=== PATIENT | male | born 1950 | race Caucasian/White ===

== ENCOUNTER 2022-04-16 14:40 | Outpatient (CLI) | payer MEDICARE, BC, SELFPAY ==
--- OUTSIDE RECORDS SUMMARY | 2022-04-16 14:45 | XMS_ITS | Clinical Summary ---
:1950 Author Organization [facility] [place] [address] Care Team Providers Name Role Phone Obdulio Barnett MD Primary Care Provider Allergies No known active allergies Medications Medication Sig Dispensed Refills Start Date End Date Status multivitamin (MVI) Take 1 tablet by 0 11/26/2010 Active tablet mouth once daily. cholecalciferol Take 1 capsule by 0 11/26/2010 Active (VITAMIN D-3) 2,000 mouth once daily. unit capsule Facial Mask (PILLOW As directed 1 unit. 1 Each 0 01/13/2018 Active MASK ADULT) Resmed 10 air miscIndications: TYLER pillow mask for men (obstructive sleep and attached tubing apnea) varicella-zoster, PF, Shingrix (PF) 50 mcg/0.5 mL intramuscu lar suspension, kit 0 Active (Shingrix, PF,) ADM 0.5ML IM UTD intramuscular injection celecoxib (CELEBREX) Take 1 Capsule (200 60 Capsule 2 05/21/20 21 Active 200 mg mg) by mouth 2 capsuleIndications: times daily with Primary meals. osteoarthritis of right knee triamcinolone 0.5% Apply topically to 15 g 2 05/21/2021 Active (ARISTOCORT) 0.5 % affected area(s) 2 creamIndications: times daily. Chronic eczema meclizine (ANTIVERT) Take 1 Tablet (25 30 Tablet 0 06/07/2021 Active 25 mg mg) by mouth 3 tabletIndications: times daily if Benign positional needed for Vertigo. vertigo, bilateral tamsulosin (FLOMAX) Take 1 Capsule (0.4 90 Capsule 3 2 Active 0.4 mg mg) by mouth at capsuleIndications: bedtime. BPH with urinary obstruction albuterol HFA Inhale 2 Puffs by 18 g 5 06/18/2021 Active (PRO-AIR; VENTOLIN; mouth 4 times PROVENTIL) 90 daily. mcg/actuation inhalerIndications: Cough inhalational spacing For home use. 1 Each 0 06/18/2021 Active deviceIndications: Cough CPAPIndications: CPAP machine for 1 Each 11 06/25/2021 Active Obstructive sleep home use at apnea, Poor sleep pressure: 9 cmw , hygiene Heated humidifier x 1 q 5 yr, Humidifier chamber x 1 q 6 mo, nasal mask x1 q 3mos, with pillows x 2 q mo, Heated tubing x 1 q 3 mo, Headgear x 1 q 6 mo, Filters: Disposable x 2 q mo non-disposable filters x1 q 6mo, Length of Need: 99 months, Frequency of use: Daily buPROPion (WELLBUTRIN Take 1 Tablet (200 90 Tablet 3 2 Active SR) 200 mg mg) by mouth once Sustained-Release daily. tabletIndications: Malaise and fatigue naltrexone (REVIA) 50 Take 1 Tablet (50 30 Tablet 5 09/24/2021 Active mg tabletIndications: mg) by mouth once Alcohol abuse daily. durable medical Procare Reddie Brace, medium 0 11/21 Active equipment [id number] Length of use: 99 months (DME)Indications: Primary osteoarthritis of right knee, Chronic pain of right knee durable medical Quickfit wrist II, Univ/XL, Left 0 0 11/21/2021 Active equipment [id number] Length of Use: 99 months (DME)Indications: Bilateral carpal tunnel syndrome durable medical Quickfit Wrist II, Univ/XL, Right 0 11/21/2021 Active equipment [id number] Length of use: 99 months (DME)Indications: Bilateral carpal tunnel syndrome sildenafil citrate Take 1 Tablet (100 10 Tablet 7 11/29/2021 Active (VIAGRA) 100 mg mg) by mouth once tabletIndications: daily if needed for Erectile dysfunction Erectile of organic origin Dysfunction. Take 30min to 4 hours before sexual activity. Max 100mg/24hr. fluticasone (50 mcg Inhale 2 Sprays to 16 g 0 11/29/2021 Active per actuation) nasal both nostrils once solution daily. (FLONASE)Indications: Acute non-recurrent maxillary sinusitis mirtazapine (REMERON) Take 1 Tablet (7.5 90 Tablet 1 2 Active 7.5 mg mg) by mouth at tabletIndications: bedtime. Insomnia, idiopathic terbinafine HCL Take 1 Tablet (250 30 Tablet 2 03/13/202206/02 Active (LAMISIL) 250 mg mg) by mouth once 3 tabletIndications: daily. 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 02/15/2016 Chondromalacia patellae of left knee 02/15/2016 Carpal tunnel syndrome on left 05/08/2015 Foraminal stenosis of cervical region 05/08/2015 Cervical radiculopathy 05/08/2015 Cervical stenosis of spinal canal 05/08/2015 Adenomatous colon polyp 05/12/2014 Overview: Colonoscopy 05/2014 polyp repeat in 5 ye ars Impingement syndrome of right shoulder 05/15/2012 Scapular dyskinesis 05/15/2012 Other malaise and fatigue 08/11/2008 Allergic rhinitis, cause unspecified 12/04/2006 TYLER 03/02/2007, AHI 18 Overview: on CPAP Encounters Date Type Specialty Care Team Description 03/13/2022 Refill Milton Martinez Refill Req uest R, DPM (Terbinafine Hc l) 03/11/2022 Ancillary Procedure 03/11/2022 Office Visit Danny Silverio Musculoskelet al Ladi Petersen MD (Follow up righ t knee pain) 03/11/2022 Travel 03/06/2022 Refill Milton Martinez Refill Req uest R, DPM (Terbinafine Hc l) 02/28/2022 Office Visit Obdulio Barnett MD 02/28/2022 Travel 02/20/2022 Office Visit Milton Martinez Follow Up (Left great R, DPM ingrown toenail , toenail fungus) 02/20/2022 Travel from Last 3 Months Immunizations Name Administration Dates Next Due AMB Influenza, IIV3 (Age >=3 04/30/2008 years)(Flu Clinic Only) AMB Influenza, IIV4 PF (=>6 mos 03/22/2014 Flulaval,Fluzone Fluarix)(Flu Clinic Only) Amb Influenza, Inact (High-dose 03/10/2020 Quadrivalent) (Flu Clinic Only) COVID-19 vaccine ([employer] 08/29/2020, 08/08/2020 30mcg/0.3mL) PF, MDV Hepatitis A (Adult) 06/09/2015, 10/27/2014 Hepatitis B (Adult) 05/20/2002, 01/26/2001, 12/30/2000 Influenza RIV4 (Age 18+ Years) 03/05/2019 PRESERV FREE Influenza Virus, Unspecified 05/04/2009, 04/30/2008, 006, 06/19/2004 Influenza, IIV3 (Age >=3 years) 04/05/2013, 07/02/2012, 04/04, 05/04/2009, 05/22/2006, 06/19/2004 Influenza, IIV4 02/12/2017, 02/15/2016, 03/14/2015 Influenza, Inactivated AIIV4 (Age 65+ 03/11/2021 Years) Preserv Free Influenza, Inactivated IIV3 (Age 65+ 03/02/2019 Years) Preserv Free Pneumococcal Poly,23-Valent 01/29/2019 (Pneumovax) Pneumococcal conj 13-Valent (Prevnar 12/29/2017 13) Td (Age >=7 Years) 01/26/1996 Td, Preservative Free (age >= 7 02/12/2017 Years) Tdap 12/05/2006 Typhoid (injectable) 01/02/2021 Zoster (Shingrix-RZV, recombinant) 12/06/2019, 07/27/2019 Zoster (Zostavax-ZVL, live) 12/04/2012 Family History Medical History Relation Name Comments Cancer Father lung Other Mother emphysema Relation Name Status Comments Brother Alive diabetic Father (Age 52) Mother (Age 86) Sister Alive Social History Tobacco Use Types Packs/Day Years Used Date Former Smoker Cigarettes 1 22 06/02/1975 - 0 06/02/1997 Smokeless Tobacco: Never Used Tobacco Cessation: Counseling Given: Yes Alcohol Use Standard Drinks/Week Comments Yes 8 (1 standard drink = 0.6 oz pure alcoho l) moderate Alcohol Habits Answer Date Recorded How often do you have a drink containing alcohol? Not asked How many drinks containing alcohol do you have on a typical Not asked day when you are drinking? How often do you have six or more drinks on one occasion? No t asked Comment: moderate 11/01/2014 Sex Assigned at Date Recorded Not on file Obstetrics History Last Filed Vital Signs Vital Sign Reading Time Taken Comments Blood Pressure 130/74 03/11/2022 9:36 AM CDT Pulse 92 03/11/2022 9:36 AM CDT Temperature 36.5 ??C (97.7 ??F) 03/11/2022 9:36 AM CDT Respiratory Rate 20 02/28/2022 11:09 AM CDT Oxygen Saturation 98% 03/11/2022 9:36 AM CDT Inhaled Oxygen Concentration - - Weight 113.7 kg (250 lb 9.6 oz) 03/11/2022 9:36 AM CDT shoes on Height 184 cm (6' 0.44) 11/29/2021 11:00 AM CDT Body Mass Index 33.57 11/29/2021 11:00 AM CDT Plan of Treatment Upcoming Encounters Date Type Specialty Care Team Description 04/16/2022 Procedure Only Danny Silverio MD Arrived [address] [place], [place] [phone] (Wo rk) 04/22/2022 Office Visit Obdulio Barnett MD [address] [place] [phone] (Kyra moore) 04/23/2022 Office Visit Obdulio Barnett MD [address] [place] [phone] (Kyra moore) Health Maintenance Due Date Last Done Comments Fecal testing non-DNA 11/15/2014 11/15/2013, 09/10/2012 (FIT,FOBT,iFOBT) for age 45-75 Influenza for age 65+ 01/31/2022 03/11/2021, 03/10/2020, 03/05/2019, Additional history exists Medicare Wellness for age 65+ 06/18/2022 06/18/2021, 2019, 01/29/2019, Additional history exists Depression screening for age 12+ 06/21/2022 06/21/2021, , 06/18/2021, Additional history exists BMI (ht and wt on same day) for 11/29/2022 11/29/2021, 07/2021, age 18+ 06/18/2021, Additional history exists Colonoscopy through age 75 12/27/2024 12/28/2019, 4, 05/11/2014, Additional history exists Lipids for age 45-75 06/18/2026 06/18/2021, 11/24/2017, 11/21/2015, Additional history exists Tetanus booster 02/12/2027 02/12/2017, 12/05/2006, 01/26/1996 Tdap Completed 12/05/2006 AAA screening age 55-77 Completed 09/19/2016 Pneumococcal series for age 65+ Completed 01/29/2019, 12/02 Hepatitis C screening for age Completed 07/19/2019 18-79 Zoster (shingles) series for age Completed 12/06/2019, , 50+ 12/04/2012 COVID-19 vaccine series Completed 02/15/2022, 09/08/2021, 03/09/2021, Additional history exists Procedures Procedure Name Priority Date/Time Associated Diagnosis Comme nts XR KNEE WB 2 VIEWS Routine 03/11/2022 10:06 Primary osteoarthr itis Results for this BILATERAL AND 1 AM CDT of right knee procedure are in VIEW RIGHT Chronic pain of right the re sults knee with AVN of medial sect ion. femoral condyle from Last 3 Months Results XR KNEE WB 2 VIEWS BILATERAL AND 1 VIEW RIGHT (03/11/2022 10:06 AM CDT) Anatomical Region Laterality Modality KNEES, KNEE R Computed Radiography Specimen (Source) Anatomical Collection Method Collection Time Re ceived Time Location / / Volume Laterality 03/11/2022 2:52 PM CDT Narrative 03/11/2022 2:52 PM CDT For Patients: ??As a result of the Cures Act, medical imaging exams and procedure report s are released immediately into your [facility] medical record. ??You may view this report before your referring provider. ??If you have questions, please contact your health care provider. Indication: Chronic pain Technique: PA standing both knees, standing lateral view right knee and bilateral patellofemoral view, five views total Comparison: 12/23/2018 Findings: On the right, there is a chronic osteoch ondral defect involving the medial femoral condyle measuring 1.8 cm. Medial compartment narrowing. Patellofemoral compartment narrowing. Small joint effusion. No significant change compared to the prior study. On the left, there is medial compartment narrowing. Mild patellofemoral spurring. Impression: Bilateral degenerative joint disease, si milar to the prior exam. 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 Dictated by Will Zavala MD @ Mar 11 ??2:52PM (Electronically Signed) ?? Procedure Note Will Zavala MD - 03/11/2022For matting of this note might be different from the original. For Patients: As a result of the Cures Act, medical imaging exams and procedure reports are released immediately into your electronic medical record. You may view this report before your referring provider. If you have questions, please contact yo health care provider. Indication: Chronic pain Technique: PA standing both knees, standing lateral view right knee and bilateral patellofemoral view, five views total Comparison: 12/23/2018 Findings: On the right, there is a chronic osteoch ondral defect involving the medial femoral condyle measuring 1.8 cm. Medial compartment narrowing. Patellofemoral compartment narrowing. Small joint effusion. No significant change compared to the prior study. On the left, there is medial compartment narrowing. Mild patellofemoral spurring. Impression: Bilateral degenerative joint disease, si milar to the prior exam. 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 Dictated by Will Zavala MD @ Mar 11 2:52PM (Electronically Signed) Danny Silverio MD GENERAL IMAGING from Last 3 Months Insurance Payer Benefit Plan / Subscriber ID Effective Dates Phone Addre ss Type Group MEDICARE PART B MEDICARE PART B [id number] 2017-Presen ATTN: CLAIMS - HB USE ONLY HB ONLY t [address] [place] [address] MEDICARE - PB MEDICARE PB [id number] 2017-Presen ATTN : CLAIMS USE ONLY ONLY t [address] [place] [address] BLUE CROSS BLUE CROSS OF [id number] 2017-Presen [address] [place] [address] [phone] (Work) Tutu Randhawa Personal/Family Self 1950 [address] (Home) [place], [place] [phone] (Work) Advance Directives Documents on File Type Date Recorded 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
== END 2022-04-16 14:41 | disposition home or self-care (01) ==
LOC: INJ CL 14:43
PROVIDERS: PCP Family Medicine; Visit Provider Family Medicine
DX: M17.11 Unilateral primary osteoarthritis, right knee (principal); M25.561 Pain in right knee
CPT/HCPCS: 64454